=== PATIENT | female | born 1995 | race Caucasian/White ===

== ENCOUNTER 2023-07-14 09:19 | Emergency (ER) | payer SELFPAY ==
[~2023-07-14] VITALS: Ht 175.3 cm; Wt 97.5 kg
[2023-07-14 09:42] VITALS: BP 115/80; RESP 18; TEMP 97.7
[2023-07-14] MEDS ORDERED: IBUP-2213 PO (11:40)
[2023-07-14 12:00] VITALS: BP 132/60; PULSE 78; RESP 18; TEMP 98; O2SAT 99
== END 2023-07-14 12:00 | disposition home or self-care (01) ==
LOC: MED 09:19
DX: J06.9 Acute upper respiratory infection, unspecified (principal); Z79.899 Other long term (current) drug therapy
CPT/HCPCS: 87081; 99283